=== PATIENT | female | born 1935 | race Caucasian/White ===

== ENCOUNTER → 2016-05-22 16:54 | Outpatient (CLI) | payer MEDICARE, BC | END | disposition home or self-care (01) | LOC: D.MAMMO 10:45 | DX: Z12.31 Encounter for screening mammogram for malignant neoplasm of breast (principal) ==

== ENCOUNTER → 2016-07-30 08:21 | Outpatient (CLI) | payer MEDICARE, BC | END | disposition home or self-care (01) | LOC: D.CT 07-26 11:30 | DX: I65.29 Occlusion and stenosis of unspecified carotid artery (principal) ==

== ENCOUNTER 2017-01-22 05:31 | Day surgery (SDC) | payer MEDICARE, BC ==
[2017-01-21 15:01] LABS: BASOPHILS 0.1 % (0-2); EOSINOPHILS 0.3 % (0-7); HEMATOCRIT 36.8 % (36.0-48.0); IMMATURE GRANULOCYTES 0.1 % (0-5); LYMPHOCYTES 33.9 % (15-50); MCH 29.1 pg (26.0-34.0); MCHC 32.6 g/dL (31.0-37.0); MCV 89.3 fL (80.0-100.0); MEAN PLATELET VOLUME 10.5 fL (7.4-10.4); MONOCYTES 9.6 % (2-11); PLATELET COUNT 223 10x3/uL (130-400); RBC 4.12 10x6/uL (4.00-5.40); RDW 12.9 % (11.5-14.5); WBC 7.6 10x3/uL (4.8-10.8)
[2017-01-21 15:20] LABS: ANION GAP 12.5 mmol/L (8-16); CALCIUM 9.3 mg/dL (8.5-10.1); CARBON DIOXIDE 25.8 mmol/L (21.0-32.0); POTASSIUM - SERUM 4.3 mmol/L (3.5-5.1)
[~2017-01-22] VITALS: Ht 160 cm; Wt 62.1 kg
[~2017-01-22 05:31] MED LIST: ASPIRIN EC81 M1 PO; CRESTOR20 MG PO; GLUCOPHAGE1000 MG PO; LANTUS SOL100 UNIT/1 SC; LISINOPRIL2.5 MG PO; OXYBUTYNIN CHLOR5 MG PO; TIROSINT13 MCG PO
[2017-01-22 08:38] VITALS: BP 151/73; Ht 160 cm; Wt 62.1 kg
--- NOTE | 2017-01-22 10:32 | NUR ---
PT CONCERNED THAT BS WILL DROP THERE WILL BE A WAIT BEFORE SURGERY. NOT SYMPTOMATIC AT THIS TIME. CALL TO DR. LILLY. ORDER REC'D, TO GIVE 1/2 D50 AND REPEAT BS 30 MINUTES.
[2017-01-22] MEDS ORDERED: NORCO 7.5/325 T1 TA1 PO (15:32)
[2017-01-22] MEDS ORDERED: DURICEF500 MG PO (15:32)
--- NOTE | 2017-01-22 17:38 | NUR ---
1715 IV DC WITH CATHER TIP INTACT
--- NOTE | 2017-01-22 18:22 | OP ---
PATIENT NAME: DOLLY DAVIS MEDICAL RECORD: [id number] :31 LOCATION:[facility] ADMISSION DATE: SURGEON: ESTRELLA LEE DO DATE OF OPERATION: 01/22/2017 PROCEDURE PERFORMED: Right distal radius open reduction internal fixation with a skeletal Dynamics Geminus plate. PREOPERATIVE DIAGNOSIS: Closed right intraarticular distal radius fracture was displaced. POSTOPERATIVE DIAGNOSIS: Closed right intraarticular distal radius fracture was displaced. INDICATIONS: Ms. Davis is an 82-year-old female who fell backwards a couple of days ago and cut herself with her right wrist and sustained a distal radius fracture. She was seen in [facility] and sent to my clinic yesterday. I saw her and booked her for surgery today. She was informed of the risks and benefits of procedure and consented to proceeding forward with it. ANESTHESIA: The patient was given the operative block by anesthesia in the preoperative area. ANTIBIOTICS: She was given Ancef preoperatively for antibiotics. TOURNIQUET TIME: 52 minutes. ESTIMATED BLOOD LOSS: Minimal. COMPLICATIONS: None. DESCRIPTION OF PROCEDURE: The patient was taken to the operative suite, laid in supine position, given general anesthetic. Once this was done, the right arm was prepped and draped in sterile fashion and having tourniquet placed above the elbow prior to being prepped and draped. After this done, a timeout was performed, it was agreed to correct site, side, and the patient. The patient has already been given antibiotic and the procedure commenced. The incision was marked out over the flexor carpi radialis tendon. Once this was done, the Esmarch was used to exsanguinate the right upper extremity and tourniquet was inflated to 250 mmHg. Careful dissection was then made after the skin incision made with a 15 blade down to the flexor carpi radialis tendon itself that was taken ulnarly and the dorsal surface of the flexor tendon sheath was incised as well. The FPL was then taken ulnarly as well. This was encountered and the pronator quadratus was incised off the radial border of the radius. The fracture was then encountered. Reduction maneuvers were made and the plate was placed onto the distal radius itself. Once this was done, a proper reduction was made. Screw was placed into the shaft first IN the oblong hole. After this was done, a high compression screw was placed on the radial side as if there was a split intra-articular fracture with having 2 fragments, both 1 ulnarly and 1 radially. The high compression screw was placed on the radial side and then locking screws were then placed as reduction was held and another hole on the radial side and then 2 others holes on the ulnar side. Once that was done and good reduction was seen, two locking screws were placed in the shaft. The brachioradialis had been released off the radial styloid in order to keep the reduction prior to putting the locking screws. After this was done, the capsule OPERATIVE REPORT [id number] DOLLY DAVIS was closed just over the distal radius that had been opened to ensure his good reduction of the articular surface. This having been done, the tourniquet was then let down. Any bleeders were coagulated with the bipolar. The skin was then closed with 3-0 Vicryl in an inverted interrupted fashion and Prineo with Dermabond was placed on the skin. We placed Adaptic, 4 x 4 over the incision site after the Prineo had dried and Webril and then a volar wrist splint was placed on the patient and an Levi wrap was wrapped over that. The patient was awakened and taken to recovery in stable condition. Tourniquet was let down at 52 minutes. Blood loss was minimal. TRANSINT:[id number] Voice Confirmation ID: [id number] DOCUMENT ID: [id number] ESTRELLA LEE DO at 1822 CC: [id number] DICTATION DATE: 01/22/[address] ABSTRACTOR: 01/22/17 1707 [facility] 01/22/[address] [address]
== END 2017-01-22 17:20 | disposition home or self-care (01) ==
LOC: D.OPS 05:31 → D.PAN 10:00 → D.OPS 11:00
PROVIDERS: Anesthesiology
DX: S52.571A Other intraarticular fracture of lower end of right radius, initial encounter for closed fracture (principal); W19.XXXA Unspecified fall, initial encounter; Z01.812 Encounter for preprocedural laboratory examination

== ENCOUNTER 2017-08-30 18:00 | Outpatient (CLI) | payer MEDICARE, BC ==
[2017-01-22 08:38] VITALS: BMI 24.3
[~2017-08-30 18:00] MED LIST changes: +DURICEF500 MG PO; +NORCO 7.5/325 T1 TA1 PO
== END 2017-08-30 23:59 | disposition home or self-care (01) ==
LOC: D.MAMMO 18:00
DX: Z12.31 Encounter for screening mammogram for malignant neoplasm of breast (principal)

== ENCOUNTER → 2018-10-02 09:00 | Outpatient (CLI) | payer MEDICARE, BC ==
[2017-01-22 08:38] VITALS: BMI 24.3
== END | disposition home or self-care (01) ==
LOC: D.MAMMO 09:00
PROVIDERS: ATTEND Clinical Nurse Specialist Adult Health
DX: Z12.31 Encounter for screening mammogram for malignant neoplasm of breast (principal)

== ENCOUNTER → 2019-02-19 09:34 | Outpatient (CLI) | payer MEDICARE, BC ==
[2017-01-22 08:38] VITALS: BMI 24.3
== END | disposition home or self-care (01) ==
LOC: D.HCCARDIO 09:34 → D.HCCECHO 10:30
PROVIDERS: ATTEND Internal Medicine Cardiovascular Disease
DX: I20.9 Angina pectoris, unspecified (principal); I10 Essential (primary) hypertension

== ENCOUNTER 2019-03-05 06:34 | Outpatient (CLI) | payer MEDICARE, BC ==
[~2019-03-05] VITALS: Ht 160 cm; Wt 66.4 kg
--- NOTE | ~2019-03-05 | HEMODYNAMI ---
PATIENT:DOLLY GUTIÉRREZ MEDICAL RECORD: [id number] : 31 LOCATION:[facility] ADMISSION DATE: 03/05/19 Generatedon:03/05/20199:00 Patient name: DOLLY GUTIÉRREZ Patient #: [id number] SSN: : Date of study: 03/05/2019 Page: Of Hemodynamic Procedure Report Patient Data Patient Demographics Procedure consent was obtained First Name: DOLLY Gender: Female Last Name: BROCK : 1935 Patient #: [id number] Age: 84 year(s) Race: Unknown Additional ID: [id number] Contact details Address: [address] [place] [address] State: [place] City: [place] Zip code: [address] Past Medical History Performed procedures and imaging results Date Procedure Procedure Results Comments Stress testing Positive->Intermediate with SPECT MPI risk Allergies: No known allergies Admission Admission Data Admission Date: 03/05/2019 Admission Time: 6:34 Arrival Date: 03/05/2019 Arrival Time: 0:00 Height (in.): 62.99 BSA: 1.69 (m2) Height (cm.): 160 BMI: 25.78 (kg/m2) Weight (lbs.): 145.51 Weight (kg.): 66 Lab Results Lab Result Date: 03/05/2019 Lab Result Time: 0:00 Biochemistry Name Units Result Min Max BUN mg/dl 23 --(----)-* 7 18 Creatinine mg/dl 1.1 --(--*-)-- 0.6 1.3 eGFR ml/min 50 *-(----)-- 90 120 NONAFRICAN CBC Name Units Result Min Max Hematocrit % 38.2 *-(----)-- 42 54 Hemoglobin g/dl 12.2 *-(----)-- 13.5 17.5 Procedure Procedure Types Cath Procedure Diagnostic Procedure LHC LHC w/Coronaries Sedation Charges Moderate Sedation up to 15 minutes Procedure Description Procedure Date Procedure Date: 03/05/2019 Procedure Start Time: 8:41 Procedure End Time: 8:58 Procedure Staff Name Function Leon Alvarado MD Performing Physician Donna Hayden RT Monitor Vicky Saucedo RT Scrub Rocio Sullivan RN Nurse Procedure Data Cath Procedure Fluoroscopy Diagnostic fluoroscopy Total fluoroscopy Time: 2.8 time: 2.8 min min Diagnostic fluoroscopy Total fluoroscopy dose: 577 dose: 577 mGy mGy Contrast Material Contrast Material Type Amount (ml) Isovue 370 74 Entry Location Entry Primary Successful Side Size Upsize Upsize Entry Closure Succes sful Closure Location (Fr) 1 (Fr) 2 (Fr) Remarks Device Remarks Femoral Right 5 Fr Exoseal artery Estimated blood loss: 5 ml Diagnostic catheters Device Type Used For End Catheter Placement MULTIPACK JL 4.0 5Fr Procedure catheter MULTIPACK 3DRC 5Fr Procedure catheter MULTIPACK Pigtail 5 Fr Procedure catheter Procedure Complications No complications Procedure Medications Medication Administration Route Dosage 0.9% NaCl I.V. 100 ml/hr Oxygen etCO2 Nasal cannula 2 l/min Lidocaine 2% added to field 20 Heparin Flush Bag added to field 2 bags (1000units/500ml NS) Versed I.V. 2 mg Fentanyl I.V. 50 mcg Fentanyl I.V. 50 mcg Mechanical Ventricular Support Other mechanical ventricular support: Hemodynamics Rest BSA: 1.69 (m2) HGB: 12.2 (g/dl) O2 Consumption: Estimated: 159.6 (ml/min) O2 Con sumption indexed: Estimated:94.44 (ml/min/m) Heart Rate: 85 (bpm) Pressure Samples Time Site Value (mmHg) Purpose Heart Use Rate(bpm) 8:50 LV 183/-29,54 Snapshot 72 8:51 AO 137/99(91) Pullback 85 8:51 LV 158/3,2 Pullback 85 Gradients Valve Time Site 1 Site 2 Mean SEP/DFP Peak To Heart Use (mmHg) (sec/min) Peak Rate (mmHg) (bpm) Aortic 8:51 LV AO 20 20 21 85 158/3,2 137/99(91) Calculations Valve P-P Mean Valve Index Valve Source Name Gradient Area Flow (cm2) Aortic 21 20 21 20 Snapshots Pre Cath Intra NCS Post Cath Vital Signs Time Heart Resp SPO2 etCO2 NIBP (mmHg) Rhythm Pain Sedation Rate (ipm) (%) (mmHg) Status Level (bpm) 8:24:58 84 28 100 32.8 Measuring NSR 0 (11) 10(A) , No pain 8:26:14 81 18 100 16.7 156/86(111) NSR 0 (11) 10(A) , No pain 8:30:36 77 16 99 0 127/70(104) NSR 0 (11) 10(A) , No pain 8:34:40 72 14 96 0 130/90(114) NSR 0 (11) 10(A) , No pain 8:38:52 76 12 98 19 125/73(102) NSR 0 (11) 10(A) , No pain 8:42:58 87 15 100 38 146/83(124) NSR 0 (11) 10(A) , No pain 8:47:57 89 13 99 26.6 Measuring NSR 0 (11) 10(A) , No pain 8:49:02 91 14 100 16 181/101(148) NSR 0 (11) 9(A) , No pain 8:53:26 87 14 99 0 152/92(148) NSR 0 (11) 9(A) , No pain 8:57:41 88 7 100 33.5 148/87(118) NSR 0 (11) 10(A) , No pain Medications Time Medication Route Dose Verified Delivered Reason Notes Effe ctiveness by by 8:23:19 0.9% NaCl I.V. 100 Leon Rocio used for ml/hr Christiano Sullivan planning consultant 8:23:25 Oxygen etCO2 2 Leon Rocio used for Nasal l/min Christiano Sullivan procedure cannula RN 8:23:30 Lidocaine 2% added 20ml Leon Leon for local to vial Christiano Alvarado MD anesthetic field 8:23:34 Heparin Flush added 2 Leon Leon used for Bag to bags Christiano Alvarado MD procedure (1000units/500ml field NS) 8:39:00 Versed I.V. 2 mg Leon Rocio for Christiano Sullivan sedation RN 8:39:12 Fentanyl I.V. 50 Leon Rocio for mcg Christiano Sullivan sedation RN 8:46:24 Fentanyl I.V. 50 Leon Rocio for mcg Christiano Sullivan sedation c.o.d. audit clerk Log Time Note 8:04:45 Informed consent obtained and on chart 8:05:05 Procedure Status Elective Heart Cath (OP). 8:05:07 Time tracking: Regular hours (M-F 7:00 - 5:00) 8:05:09 Plan of Care:Hemodynamics will remain stable., Cardiac rhythm will remain stable., Comfort level will be maintained., Respiratory function will remain adequate., Patient/ family verbilizes understanding of procedure., Procedure tolerated without complication., Recovers from procedure without complications.. 8:06:36 H&P Date Dictated: 02/05/2019 Within 30 days and on chart., H&P Addendum completed by physician on day of procedure. (MUST COMPLETE FOR ALL OUTPATIENTS). 8:06:41 Patient allergic to No known allergies 8:08:06 Lab Result : BUN 23 mg/dl 8:08:06 Lab Result : Creatinine 1.1 mg/dl 8:08:06 Lab Result : eGFR NONAFRICAN 50 ml/min 8:08:06 Lab Result : Hemoglobin 12.2 g/dl 8:08:06 Lab Result : Hematocrit 38.2 % 8:08:54 Patient Height : 62.99 inches 8:08:57 Patient Weight : 145.51 lbs 8:09:01 Arrival Date: 03/05/2019 12:00:00 AM 8:10:15 Stress Test: yes; abnormal ANTERIOR AND APICAL 8:11:19 Vicky Saucedo RT(R) sent for patient. Start room use. 8:18:34 Patient received from Pre/Post Procedure Room to CCL 1 Alert and oriented. Tansferred to table in Supine position. 8:18:35 Warm blankets applied, and glenda hugger turned on for patient comfort. 8:18:36 Correct patient and procedure confirmed by team. 8:18:36 ECG and BP/O2 sat monitors applied to patient. 8:19:59 Pre-procedure instructions explained to patient. 8:19:59 Pre-op teaching completed and patient verbalized understanding. 8:20:12 Family in waiting room. 8:20:15 Is the patient allergic to Iodine/contrast media? No. 8:20:18 Is patient on blood thinner?No 8:20:40 Patient diabetic? Yes. 8:20:41 If diabetic: On Metformin? Yes 8:20:47 If on Metformin: Last Dose? 03/04/2019 8:20:53 Patient not . Patient is over age 55. 8:20:54 ----Pre-sedation anethsthesia assessment.---- 8:20:57 Previous problem with sedation/anesthesia? No ? 8:20:59 Snore? No 8:21:00 Sleep apnea? No 8:21:01 Deviated septum? No 8:21:02 Opens mouth fully? Yes 8:21:04 Sticks out tongue? Yes 8:21:08 Airway obstruction? No ? 8:21:11 Dentures? No ? 8:21:20 Patient pain scale 0/10 ?. 8:23:10 Vital chart was started 8:23:19 0.9% NaCl 100 ml/hr I.V. was administered by Rocio Sullivan RN; used for procedure; Verbal order read back and verified. 8:23:25 Oxygen 2 l/min etCO2 Nasal cannula was administered by Rocio Sullivan RN; used for procedure; Verbal order read back and verified. 8:23:25 Risk of Mortality: 0.3 8:23:29 Risk of blood transfusion: 0.8 8:23:30 Lidocaine 2% 20ml vial added to field was administered by Leon Alvarado MD; for local anesthetic; Verbal order read back and verified. 8:23:31 Risk of PERFECTO: 0.9 8:23:34 Heparin Flush Bag (1000units/500ml NS) 2 bags added to field was administered by Leon Alvarado MD; used for procedure; Verbal order read back and verified. 8:23:46 IV patent on arrival in left forearm with 0.9% NaCl at [facility]. 8:23:52 Pre procedure: right dorsailis pedis pulse 2+ Normal; easily identifiable; not easily obliterated 8:23:56 Lab results completed and on chart. 8:24:00 Right groin area was prepped with chlora-prep and draped in sterile fashion 8:24:01 Alarms reviewed by R. N. 8:24:02 Sharps counted by scrub and verified by R.N. 8:24:08 Patient NPO since Midnight. 8:24:11 Was the patient premedicated? Yes 8:24:17 Baseline sample Acquired. 8:24:32 Rhythm: sinus rhythm 8:24:34 Full Disclosure recording started 8:24:38 Use device set Femoral Dx 8:24:39 ACIST Syringe (05551) opened to sterile field. 8:24:40 Bag Decanter (2002S) opened to sterile field. 8:24:41 Medline Cath Pack ([id number]) opened to sterile field. 8:24:43 ACIST Hand Control (27265) opened to sterile field. 8:24:44 ACIST Manifold (84985) opened to sterile field. 8:24:45 DIAGNOSTIC Multipack 5Fr catheter set (UP7421) opened to sterile field. 8:24:47 SHEATH 5FR [place] (OQG816) opened to sterile field. 8:24:48 EMERALD Guide Wire (517-845) opened to sterile field. 8:31:40 Other mechanical ventricular support: 8:38:08 --------ALL STOP TIME OUT------ 8:38:09 Final Timeout: patient, procedure, and site verified with staff and physician. All members of the team are in agreement. 8:38:11 Right groin site verified by team. 8:38:15 Fire Safety Assessment: A--An alcohol-based skin anteseptic being used preoperatively., C--Open oxygen or nitrous oxide is being used., D--An ESU, laser, or fiber-optic light is being used. 8:38:19 Physical assessment completed. ASA score P 2 - A patient with mild systemic disease as per Leon Alvarado MD. 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 8:38:30 Maximum allowable contrast dose (3.7 X eGFR X 0.75)139 ml. 8:38:35 Sedation plan: IV Moderate Sedation Medication:Versed, Fentanyl 8:39:00 Versed 2 mg I.V. was administered by Rocio Sullivan RN; for sedation; Verbal order read back and verified. 8:39:12 Fentanyl 50 mcg I.V. was administered by Rocio Sullivan RN; for sedation; Verbal order read back and verified. 8:41:33 Procedure started. 8:41:37 Local anesthetic to right femoral artery with Lidocaine 2% by Leon Alvarado MD.INITIAL ACCESS ONLY 8:42:48 A 5 Fr sheath was inserted into the Right Femoral artery 8:42:55 A MULTIPACK JL 4.0 5Fr catheter was advanced over the wire and used for Procedure. 8:44:09 LCA angiography performed. 8:46:24 Fentanyl 50 mcg I.V. was administered by Rocio Sullivan RN; for sedation; Verbal order read back and verified. 8:46:46 Catheter exchanged over wire. 8:47:10 A MULTIPACK 3DRC 5Fr catheter was advanced over the wire and used for Procedure. 8:48:20 RCA angiography performed. 8:48:42 Catheter exchanged over wire. 8:49:21 A MULTIPACK Pigtail 5 Fr catheter was advanced over the wire and used for Procedure. 8:50:20 Injector settings: Ml/sec: 10, Volume: 20, 8:50:34 LV hemodynamics recorded. 8:50:36 LV gram done using PINTO 8:50:52 EF : 50 % 8:51:34 Injector settings: Ml/sec: 15, Volume: 30, 8:51:35 Aortic Root visualized 8:54:22 EXOSEAL 5Fr (EX500) opened to sterile field. 8:54:32 Sheath removed intact; hemostasis achieved with Exoseal to the Right Femoral artery. 8:55:05 Procedure ended.(Physican Out) 8:55:17 Fluoroscopy time 02.80 minutes. 8:55:21 Fluoroscopy dose: 577 mGy 8:55:21 Flurop Dose total: 577 8:55:26 Dose Area Product 80261 mGy/cm. 8:55:32 Contrast amount:Isovue 370 74ml. 8:55:34 Sharps counted by scrub and verified by R.N. 8:55:58 Post-op/insertion site Right Femoral artery dressed using a 4 x 4 and Tegaderm. 8:56:03 Post right femoral artery:stable, soft, clean and dry 8:56:05 Post Procedure Pulses reassessed and unchanged 8:56:09 Post procedure: right dorsailis pedis pulse 2+ Normal; easily identifiable; not easily obliterated. 8:56:12 Post-procedure physical assessment completed. ASA score P 2 - A patient with mild systemic disease as per Leon Alvarado MD. 8:57:16 Post procedure rhythm: unchanged. 8:57:19 Estimated blood loss: 5 ml 8:57:20 Post procedure instruction explained to patient.Patient verbalizes understanding. 8:57:21 Patient needs reinforcement of post procedure teaching. 8:57:52 Procedure type changed to Cath procedure, Diagnostic procedure, LHC, LHC w/Coronaries, Sedation Charges, Moderate Sedation up to 15 minutes 8:58:11 Procedure and supply charges have been captured, reviewed, submitted and are correct. 8:58:15 Procedure Complication : No complications 8:58:25 [facility] Findings: HAYDE- will discuss options w/ pt 8:58:27 Operative report dictated upon procedure completion. 8:58:28 See physician's report for complete and final results. 8:58:30 Report given to Pre/Post Procedure Room. 8:58:33 Patient transfered to Pre/Post Procedure Room with Stretcher. 8:58:34 Vital chart was stopped 8:58:38 Procedure ended. 8:58:38 Full Disclosure recording stopped 8:59:03 End room use (Document Last) 8:59:23 End room use (Document Last) 9:00:04 End room use (Document Last) Device Usage Item Name Manufacture Quantity Catalog Hospital Part Current Minimal L ot# / Number Charge Number Stock Stock Serial# Code ACIST Acist 1 [id number] [id number] [id number] [id number] 20 Syringe Medical (83688) Systems Inc Bag Microtek 1 2001S 582351 62099 170053 5 Decanter Medical Inc. () Medline Medline 1 [id number] 260651 25902 829455 5 Cath Pack ([id number]) ACIST Hand Acist 1 81768 397837 893889 830635 5 Control Medical (84819) Systems Inc ACIST Acist 1 83483 485804 378811 888526 5 Manifold Medical (88605) Systems Inc DIAGNOSTIC Cardinal 1 IS7342 902092 97210 444964 30 Multipack Health 5Fr catheter set (CE0480) SHEATH 5FR Terumo 1 DWI026 481610 285799 582367 5 [place] (UIM297) EMERALD Cardinal 1 502-455 993184 340152 664945 5 Guide Wire Health (502455) MULTIPACK Cardinal 1 155481 5 JL 4.0 5Fr Health catheter MULTIPACK Cardinal 1 969770 5 3DRC 5Fr Health catheter MULTIPACK Cardinal 1 066310 5 Pigtail 5 Health Fr catheter EXOSEAL 5Fr Cardinal 1 EX500 426506 159182 666334 10 (EX500) Health Signature Audit [place] Stage Time Signature Unsigned Intra-Procedure 03/05/2019 Donna Hayden 8:59:24 AM RT(R) Intra-Procedure 03/05/2019 Rocio Sullivan 9:00:05 AM RN Intra-Procedure 03/05/2019 Leon Alvarado MD 9:00:32 AM Signatures Performing Physician : Signature : Leon Alvarado MD Date : Time : Monitor : Donna Hayden Signature : RT Date : Time : Nurse : Rocio Sullivan RN Signature : Date : Time : [facility] [address] [place] [address]
[2019-03-05 07:10] VITALS: BP 197/81; Ht 160 cm; Wt 66.4 kg
[2019-03-05 07:23] LABS: BASOPHILS 0.3 % (0-2); EOSINOPHILS 2.1 % (0-7); HEMATOCRIT 38.2 % (36.0-48.0); HEMOGLOBIN 12.2 g/dL (12-16); IMMATURE GRANULOCYTES 0.4 % (0-5); LYMPHOCYTES 30.1 % (15-50); MCHC 31.9 g/dL (31.0-37.0); MEAN PLATELET VOLUME 10.9 fL (7.4-10.4); MONOCYTES 13.1 % (2-11); PLATELET COUNT 261 10x3/uL (130-400); RDW 13.1 % (11.5-14.5); WBC 7.6 10x3/uL (4.8-10.8)
[2019-03-05 08:04] LABS: ANION GAP 11.4 mmol/L (8-16); CALCIUM 9.1 mg/dL (8.5-10.1); CARBON DIOXIDE 29.4 mmol/L (21.0-32.0); CHOL - HDL RATIO 4.2 ratio (2.3-4.1); CREATININE - SERUM 1.1 mg/dL (0.6-1.3); LDL-HDL RATIO 2.7 ratio (1.5-3.5); POTASSIUM - SERUM 4.8 mmol/L (3.5-5.1)
--- NOTE | 2019-03-05 09:10 | NUR ---
REC'D TO ROOM 4 VIA STRETCHER FROM CROP OR GRAIN FARMER. MONITORS ESTAB. PT AWAKE, ORIENTED, DENIES PAIN. R GROIN SITE C/D/I, NO SIGN OF HEMATOMA OR BLEEDING. PEDAL PULSES WEAK PALP. BP 164/61, HR 79, RR 18, POX 100%. FAMILY AT BS. C/L IN REACH.
--- NOTE | 2019-03-05 09:23 | NUR ---
DR. CORREA NURSE CAME TO SEE PT AND APPT SET UP.
--- NOTE | 2019-03-05 09:40 | NUR ---
PT RESTING QUIETLY, BP 141/65, HR 75, CM - SR WITH PVCS. R GROIN SITE C/D/I, SOFT. PEDAL PULSES PALP. FAMILY REMAINS AT BS.
--- NOTE | 2019-03-05 10:22 | NUR ---
HEAD OF BED ELEVATED SLIGHTLY, SIP OF WATER PROVIDED. PT DENIES PAIN OR NEEDS. R GROIN SITE C/D/I, NO S/S OF HEMATOMA.
--- NOTE | 2019-03-05 10:37 | NUR ---
PT VOIDED 250ML CLEAR, YELLOW URINE ON BEDPAN. LONI-CARE PROVIDED. R GROIN SITE C/D/I
--- NOTE | 2019-03-05 11:00 | NUR ---
PIV D/C'D INTACT. BANDAID APPLIED. DISCHARGE INSTRUCTIONS AND FOLLOW-UP APPT PROVIDED TO PT AND DAUGHTER. PT SAT UP IN BED, NO DIZZINESS. R GROIN SITE C/D/I. DAUGHTER ASSISTING PT WITH DRESSING.
--- NOTE | 2019-03-05 11:09 | NUR ---
PT D/C'D VIA WC TO PRIVATE VEHICLE WITH DAUGHTER. PT HAS ALL BELONGINGS AND D/C INFORMATION.
== END 2019-03-05 11:11 | disposition home or self-care (01) ==
LOC: D.CATH 06:34
PROVIDERS: ATTEND Internal Medicine Cardiovascular Disease
DX: I20.9 Angina pectoris, unspecified (principal); R94.39 Abnormal result of other cardiovascular function study; E11.65 Type 2 diabetes mellitus with hyperglycemia; Z79.84 Long term (current) use of oral hypoglycemic drugs; I10 Essential (primary) hypertension

== ENCOUNTER → 2019-04-21 09:22 | Outpatient (CLI) | payer MEDICARE, BC ==
[2019-03-28 09:20] VITALS: BMI 30.3
[~2019-04-21 09:22] MED LIST changes: +AMIODARONE HCL200 MG PO; +BACTRIM DS PO; +CALCIUM 600 +1 EAC3 PO; +CENTRUM SILVER1 EAC3 PO; +FLORAJEN3 CAPS460 MG PO; +GLUCOPHAGE500 MG PO; +GLYBURIDE5 M1 PO; +LANTUS INSULIN SQ; -LANTUS SOL100 UNIT/1 SC; +LOPRESSOR25 MG PO; +MAG-OX 400 MG400 MG PO; +PERCOCET 5-3251 TAB PO; +PHENAZOPYRIDIN100 MG PO; +PROTONIX40 MG PO; -TIROSINT13 MCG PO; +TIROSINT50 MCG PO; +TRIMETHOPRIM PO; +VISION FORMULA PO; +VITAMIN B-121000 MCG PO
[2019-04-21 10:27] LABS: BASOPHILS 0.3 % (0-2); HEMATOCRIT 33.8 % (36.0-48.0); HEMOGLOBIN 10.5 g/dL (12-16); IMMATURE GRANULOCYTES 0.7 % (0-5); LYMPHOCYTES 34.6 % (15-50); MCH 27.7 pg (26.0-34.0); MCHC 31.1 g/dL (31.0-37.0); MCV 89.2 fL (80.0-100.0); MEAN PLATELET VOLUME 10.2 fL (7.4-10.4); MONOCYTES 10.7 % (2-11); NEUTROPHILS 52.7 % (40-80); RBC 3.79 10x6/uL (4.00-5.40); RDW 13.4 % (11.5-14.5); WBC 6.7 10x3/uL (4.8-10.8)
[2019-04-21 10:30] LABS: ANION GAP 12.6 mmol/L (8-16); CALCIUM 9.4 mg/dL (8.5-10.1); CARBON DIOXIDE 27.3 mmol/L (21.0-32.0); CREATININE - SERUM 1.4 mg/dL (0.6-1.3); PLATELET COUNT 326 10x3/uL (130-400); POTASSIUM - SERUM 4.9 mmol/L (3.5-5.1)
== END | disposition home or self-care (01) ==
LOC: D.LAB 09:22
PROVIDERS: ATTEND Thoracic Surgery (Cardiothoracic Vascular Surgery)
DX: Z95.1 Presence of aortocoronary bypass graft (principal)